=== PATIENT | female | born 1950 | race Hispanic/Latino ===

== ENCOUNTER 2018-10-15 12:15 | Inpatient (IN) | payer MEDICARE ==
[2018-10-15 16:57] VITALS: BMI 19.6
[2018-10-15] MEDS ORDERED: RILUZOLE 50 MG PO SCH (17:45)
[2018-10-15 19:04] LABS: BASO # 0.1 K/uL (0.0-0.2); BASO % 0.8 % (0.0-2.0); EOS # 0.1 K/uL (0.0-0.7); EOS % 1.8 % (0.0-4.0); HEMOGLOBIN 12.6 g/dL (12.0-16.0); LYMPH # 1.5 K/uL (1.0-4.3); LYMPH % 23.4 % (20.0-40.0); MEAN CELL VOLUME 90.8 fl (81.0-99.0); MEAN CORPUSCULAR HEMOGLOBIN 30.5 pg (27.0-31.0); MEAN CORPUSCULAR HGB CONC 33.5 g/dL (33.0-37.0); MEAN PLATELET VOLUME 7.9 fl (7.2-11.7); MONO # 0.5 K/uL (0.0-0.8); MONO % 8.3 % (0.0-10.0); NEUT # 4.3 K/uL (1.8-7.0); NEUT % 65.7 % (50.0-75.0); RBC 4.13 Mil/uL (3.80-5.20); RED CELL DISTRIBUTION WIDTH 13.7 % (11.5-14.5); WHITE BLOOD COUNT 6.5 K/uL (4.8-10.8)
[2018-10-15 19:15] LABS: BLOOD UREA NITROGEN 23 mg/dl (7-17); CALCIUM 9.5 mg/dL (8.4-10.2); GFR NON-AFRICAN AMERICAN > 60
[2018-10-16] MEDS: Cholecalciferol 1,000 INTLU TAB PO SCH (08:14)
[2018-10-16] MEDS: POLYETHYLENE GLYCOL 3350 17 GM/Dose PACKET PO SCH (08:14)
[2018-10-16] MEDS: Pantoprazole 40 mg EC Tab PO SCH (08:14)
[2018-10-16] MEDS: Enoxaparin 40 mg Syringe SC SCH (08:15)
--- NOTE | 2018-10-16 10:46 | CP.PCM.CON ---
History of Present Illness - History of Present Illness History of Present Illness: Pt is a 68 year old female admitted to [facility] and referred to the copy writer for evaluation. See medical record for complete medical history and medications. Social History: pt lives alone, she has had a significant other for a number of years. Pt reported having one son. Pt reported positive relationships with family members. Ed.voc: pt raised in [place], graduated HS. 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 Psych history denied, pt denied a history of alc/sub abuse. Pt spoke of her desire for confirmation of her "ALS" with a "biopsy." Pt spoke of her desire for quality of life, not wanting to be on this earth "if I can not get b yumi." Pt denied current suicidal ideation/suicidal plan. Pt invested in rehab to improve her current status. Pt encouraged to speak about her life preferences with her medical team and family. MSE: pt alert, oriented, relevant/coherent, no psychosis, affect constricted, mood depressed over status, no current suicidal ideation. Dx: Depression Plan: Continued Sup therapy Past Patient History - Infectious Disease Hx of Infectious Diseases: None - Tetanus Immunizations Tetanus Immunization: Unknown - Past Medical History & Family History Past Medical History?: Yes - Past Social History Smoking Status: Never Smoked - CARDIAC Hx Cardiac Disorders: No - PULMONARY Hx Respiratory Disorders: No - NEUROLOGICAL Hx Neurological Disorder: Yes (frequent falls recent) Hx Dizziness: Yes Other/Comment: 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 speech very slow and has problem enunciating words, pt thinks her voice sounds different since june 2018. ALS - HEENT Hx HEENT Problems: Yes - RENAL Hx Chronic Kidney Disease: No - ENDOCRINE/METABOLIC Hx Endocrine Disorders: No - HEMATOLOGICAL/ONCOLOGICAL Hx Blood Disorders: Yes Hx AIDS: No Hx Human Immunodeficiency Virus (HIV): No Other/Comment: BENY CAIN - INTEGUMENTARY Hx Dermatological Problems: No - MUSCULOSKELETAL/RHEUMATOLOGICAL Hx Musculoskeletal Disorders: Yes Hx Arthritis: Yes Hx Falls: Yes (Couple of weeks ago, multiple hx of falls) - GASTROINTESTINAL Hx Gastrointestinal Disorders: Yes Hx Gastritis: Yes Hx Ulcer: Yes (PUD) Other/Comment: weight loss, poor appetite. Hiatal Hernia - GENITOURINARY/GYNECOLOGICAL Hx Genitourinary Disorders: No - PSYCHIATRIC Hx Psychophysiologic Disorder: No Hx Substance Use: No - SURGICAL HISTORY Hx Surgeries: Yes Other/Comment: R hip surgery fx from fall. R elbow surgery. R shoulder surgery rotator cuff. Bilateral breast implant - ANESTHESIA Hx Anesthesia: Yes Hx Anesthesia Reactions: No Hx Malignant Hyperthermia: No Meds Allergies/Adverse Reactions: Allergies Allergy/AdvReac Type Severity Reaction Status Date / Time ammonia Allergy Intermediate HEADACHE Verified 10/15/18 16:56 windex Allergy Intermediate HEADACHE Uncoded 10/15/18 16:57 - Medications Medications: Current Medications Cholecalciferol (Vitamin D) 4,000 intlu PO DAILY [facility] Last Admin: 10/16/18 08:14 Dose: 4,000 intlu Clotrimazole (Mycelex Leandro) 10 mg MT 5XD [facility] Last Admin: 10/16/18 08:14 Dose: 10 mg Enoxaparin Sodium (Lovenox) 40 mg SC DAILY [facility]; Protocol Last Admin: 10/16/18 08:15 Dose: 40 mg Fluconazole (Diflucan) 100 mg PO DAILY [facility]; Protocol Last Admin: 10/16/18 08:14 Dose: 100 mg Home Med (Riluzole [Riluzole]) 50 mg PO BID [facility] Pantoprazole Sodium (Protonix Ec Tab) 40 mg PO DAILY [facility] Last Admin: 10/16/18 08:14 Dose: 40 mg Polyethylene Glycol (Miralax) 17 gm PO DAILY [facility] Last Admin: 10/16/18 08:14 Dose: 17 gm Results - Vital Signs Recent Vital Signs: Last Vital Signs Temp 96.4 F L 10/16/18 08:08 Pulse 74 10/16/18 10:00 Resp 18 10/16/18 10:00 BP 134/53 L 10/16/18 10:00 Pulse Ox 96 10/16/18 10:00 - Labs Result Diagrams: 10/15/18 18:15 10/15/18 18:15 Labs: Laboratory Results - last 24 hr 10/15/18 10/15/18 18:15 18:15 WBC 6.5 RBC 4.13 Hgb 12.6 Hct 37.5 MCV 90.8 MCH 30.5 MCHC 33.5 RDW 13.7 Plt Count 294 MPV 7.9 Neut % (Auto) 65.7 Lymph % (Auto) 23.4 Gove % (Auto) 8.3 Eos % (Auto) 1.8 Baso % (Auto) 0.8 Neut # (Auto) 4.3 Lymph # (Auto) 1.5 Gove # (Auto) 0.5 Eos # (Auto) 0.1 Baso # (Auto) 0.1 Sodium 138 Potassium 4.1 Chloride 103 Carbon Dioxide 28 Anion Gap 11 BUN 23 H Creatinine 0.5 L Est GFR ( Amer) > 60 Est GFR (Non-Af Amer) > 60 Random Glucose 126 H Calcium 9.5 Vitamin B12 > 1000 H TSH 3rd Generation 2.78
--- NOTE | 2018-10-16 16:56 | PCM.CPAPS ---
History of Present Illness - History of Present Illness History of Present Illness: Dr Campos PMR consultation on Minda Clifford, born 1950, who has been admitted to [facility] for acute inpatient rehabilitation following an admission with progressive weakness and dysphagia/dysarthria. Weakness is more on the left side than the right. Work up to this point has been extensive and did not reveal any other possible abnormality outside of ALS. An EMG/NCS had not yet been performed. She wants one. It was to be done as an outpatient but she is anxious to get this done now. I told her that I can do it at bedside and she was very happy Review of Systems - Constitutional Constitutional: Weakness. absent: Excessive Sweating - EENT Ears: absent: Ear Discharge Nose/Mouth/Throat: Dysphagia. absent: Lip Swelling, Throat Swelling, Neck Mass - Cardiovascular Cardiovascular: absent: Chest Pain, Palpitations - Respiratory Respiratory: absent: Dyspnea - Gastrointestinal Gastrointestinal: Dysphagia. absent: Dyspepsia - Musculoskeletal Musculoskeletal: Muscle Weakness - Integumentary Integumentary: absent: Sores - Neurological Neurological: Abnormal Movements (fasciculations), Abnormal Speech (dysarthria, severe), Focal Weakness, Lack of Coordination, Weakness. absent: Confusion, Disequilibrium, Memory Loss, Sensory Deficit - Psychiatric Psychiatric: absent: Anxiety Past Patient History - Infectious Disease Hx of Infectious Diseases: None - Tetanus Immunizations Tetanus Immunization: Unknown - Past Medical History & Family History Past Medical History?: Yes - Past Social History Smoking Status: Never Smoked Alcohol: Occasional - CARDIAC Hx Cardiac Disorders: No - PULMONARY Hx Respiratory Disorders: No - NEUROLOGICAL Hx Neurological Disorder: Yes (frequent falls recent) Hx Dizziness: Yes Other/Comment: 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 speech very slow and has problem enunciating words, pt thinks her voice sounds different since june 2018. ALS - HEENT Hx HEENT Problems: Yes - RENAL Hx Chronic Kidney Disease: No - ENDOCRINE/METABOLIC Hx Endocrine Disorders: No - HEMATOLOGICAL/ONCOLOGICAL Hx Blood Disorders: Yes Hx AIDS: No Hx Human Immunodeficiency Virus (HIV): No Other/Comment: BENY CAIN - INTEGUMENTARY Hx Dermatological Problems: No - MUSCULOSKELETAL/RHEUMATOLOGICAL Hx Musculoskeletal Disorders: Yes Hx Arthritis: Yes Hx Falls: Yes (Couple of weeks ago, multiple hx of falls) - GASTROINTESTINAL Hx Gastrointestinal Disorders: Yes Hx Gastritis: Yes Hx Ulcer: Yes (PUD) Other/Comment: weight loss, poor appetite. Hiatal Hernia - GENITOURINARY/GYNECOLOGICAL Hx Genitourinary Disorders: No - PSYCHIATRIC Hx Psychophysiologic Disorder: No Hx Substance Use: No - SURGICAL HISTORY Hx Surgeries: Yes Other/Comment: R hip surgery fx from fall. R elbow surgery. R shoulder surgery rotator cuff. Bilateral breast implant - ANESTHESIA Hx Anesthesia: Yes Hx Anesthesia Reactions: No Hx Malignant Hyperthermia: No Meds Allergies/Adverse Reactions: Allergies Allergy/AdvReac Type Severity Reaction Status Date / Time ammonia Allergy Intermediate HEADACHE Verified 10/15/18 16:56 windex Allergy Intermediate HEADACHE Uncoded 10/15/18 16:57 - Medications Medications: Current Medications Acetaminophen (Tylenol 325mg Tab) 650 mg PO Q6 PRN PRN Reason: for pain scale 4-10 Cholecalciferol (Vitamin D) 4,000 intlu PO DAILY [facility] Last Admin: 10/16/18 08:14 Dose: 4,000 intlu Clotrimazole (Mycelex Leandro) 10 mg MT 5XD [facility] Last Admin: 10/16/18 14:09 Dose: 10 mg Enoxaparin Sodium (Lovenox) 40 mg SC DAILY [facility]; Protocol Last Admin: 10/16/18 08:15 Dose: 40 mg Fluconazole (Diflucan) 100 mg PO DAILY [facility]; Protocol Last Admin: 10/16/18 08:14 Dose: 100 mg Home Med (Riluzole [Riluzole]) 50 mg PO BID [facility] Pantoprazole Sodium (Protonix Ec Tab) 40 mg PO DAILY [facility] Last Admin: 10/16/18 08:14 Dose: 40 mg Polyethylene Glycol (Miralax) 17 gm PO DAILY [facility] Last Admin: 10/16/18 08:14 Dose: 17 gm Physical Exam - Constitutional Appears: Non-toxic, No Acute Distress - Head Exam Head Exam: ATRAUMATIC, NORMAL INSPECTION, NORMOCEPHALIC - Eye Exam Eye Exam: EOMI - Respiratory Exam Respiratory Exam: NORMAL BREATHING PATTERN - Cardiovascular Exam Cardiovascular Exam: REGULAR RHYTHM - GI/Abdominal Exam GI & Abdominal Exam: absent: Distended - Extremities Exam Extremities exam: Negative for: calf tenderness, pedal edema - Expanded Neurological Exam Expanded Patient oriented to: person, place, time Speech: Slurred Speech - Psychiatric Exam Psychiatric exam: Normal Affect, Normal Mood - Skin Skin Exam: Warm Results - Vital Signs Recent Vital Signs: Last Vital Signs Temp 96.4 F L 10/16/18 08:08 Pulse 74 10/16/18 10:00 Resp 18 10/16/18 10:00 BP 134/53 L 10/16/18 10:00 Pulse Ox 96 10/16/18 10:00 - Labs Result Diagrams: 10/15/18 18:15 10/15/18 18:15 Labs: Laboratory Results - last 24 hr 10/15/18 10/15/18 18:15 18:15 WBC 6.5 RBC 4.13 Hgb 12.6 Hct 37.5 MCV 90.8 MCH 30.5 MCHC 33.5 RDW 13.7 Plt Count 294 MPV 7.9 Neut % (Auto) 65.7 Lymph % (Auto) 23.4 Taney % (Auto) 8.3 Eos % (Auto) 1.8 Baso % (Auto) 0.8 Neut # (Auto) 4.3 Lymph # (Auto) 1.5 Taney # (Auto) 0.5 Eos # (Auto) 0.1 Baso # (Auto) 0.1 Sodium 138 Potassium 4.1 Chloride 103 Carbon Dioxide 28 Anion Gap 11 BUN 23 H Creatinine 0.5 L Est GFR ( Amer) > 60 Est GFR (Non-Af Amer) > 60 Random Glucose 126 H Calcium 9.5 Vitamin B12 > 1000 H TSH 3rd Generation 2.78 Assessment & Plan - Assessment and Plan (Free Text) Assessment: 68 year old female with likely ALS examination has left UE/LE at 3/5 for the most part except for left shoulder and ankle dorsiflexion. The right UE/LE is 4/5 + Solitario's +/- Babinski + tongue fasciculation could not activate LE fasciculation but it has been documented by other providers PT/OT to continue to help increase functional independence Team conference for d/c planning Pain: controlled Vascular: no evidence of DVT GI: No evidence of constipation or diarrhea Neuro: I will perform a bedside EMG/NCS Patient is an excellent acute rehabilitation candidate and will have focused pain management, wound care, PT, OT and recreational therapy to help facilitate a safe and appropriate d/c plan - Functional Status Prior to Admission: reduced ADL and ambulation Current Status: reduced ambulation and ADL Impairment Code: 03.9
--- NOTE | 2018-10-16 17:26 | PCM.OPOC ---
Physiatry Overall Plan of Care - Overall Plan of Care Estimated Length of Stay in Weeks: 3 Rehab Impairment: Mobility, Gait, Speech, Balance, Coordination Etiologic Diagnosis: Other (ALS) Rehab/Medical Prognosis: Guarded - Anticipated Interventions Physical Therapy:: Yes Number of Hours: 1.5 Number of times per week: 6 Number of Week(s) Duration: 3 Occupational Therapy:: Yes Number of Hours: 1.5 Number of times per week: 6 Number of Week(s) Duration: 3 Speech Therapy:: Yes Number of Hours: 0.5 Number of times per week: 5 Number of Week(s) Duration: 3 Recreational Therapy:: Yes Number of Hours: 0.5 Number of times per week: 5 Number of Week(s) Duration: 3 - Therapy Goals Bed Mobility: Contact Guard Ambulation: Minimal Assistance Functional Positional Changes:: Contact Guard - Functional Status Prior to Admission: assistance with ambulation and ADLs Current Status: Assistance with ambulation and ADLs - Functional Outcomes Functional Outcomes: to be determined - Discharge Plan Identification of Barriers to Discharge: Home Situation Discharge Destination: Home
[2018-10-17] MEDS: Enoxaparin 40 mg Syringe SC SCH (09:11)
[2018-10-17] MEDS: POLYETHYLENE GLYCOL 3350 17 GM/Dose PACKET PO SCH (09:12)
[2018-10-17] MEDS: Pantoprazole 40 mg EC Tab PO SCH (09:13)
[2018-10-17] MEDS: Cholecalciferol 1,000 INTLU TAB PO SCH (09:13)
[2018-10-18 06:53] LABS: HEMOGLOBIN 12.9 g/dL (12.0-16.0); MEAN CELL VOLUME 90.3 fl (81.0-99.0); MEAN CORPUSCULAR HEMOGLOBIN 31.1 pg (27.0-31.0); MEAN CORPUSCULAR HGB CONC 34.5 g/dL (33.0-37.0); RBC 4.15 Mil/uL (3.80-5.20); RED CELL DISTRIBUTION WIDTH 13.4 % (11.5-14.5); WHITE BLOOD COUNT 5.4 K/uL (4.8-10.8)
[2018-10-18 07:06] LABS: BLOOD UREA NITROGEN 22 mg/dl (7-17); CALCIUM 9.5 mg/dL (8.4-10.2); GFR NON-AFRICAN AMERICAN > 60
[2018-10-18] MEDS: POLYETHYLENE GLYCOL 3350 17 GM/Dose PACKET PO SCH (09:08)
[2018-10-18] MEDS: Cholecalciferol 1,000 INTLU TAB PO SCH (09:08)
[2018-10-18] MEDS: Enoxaparin 40 mg Syringe SC SCH (09:09)
[2018-10-18] MEDS: Pantoprazole 40 mg EC Tab PO SCH (09:09)
--- NOTE | 2018-10-19 02:20 | CP.PCM.HP ---
Past Patient History - Infectious Disease Hx of Infectious Diseases: None - Tetanus Immunizations Tetanus Immunization: Unknown - Past Medical History & Family History Past Medical History?: Yes - Past Social History Smoking Status: Never Smoked Alcohol: Occasional - CARDIAC Hx Cardiac Disorders: No - PULMONARY Hx Respiratory Disorders: No - NEUROLOGICAL Hx Neurological Disorder: Yes (frequent falls recent) Hx Dizziness: Yes Other/Comment: 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 speech very slow and has problem enunciating words, pt thinks her voice sounds different since june 2018. ALS - HEENT Hx HEENT Problems: Yes - RENAL Hx Chronic Kidney Disease: No - ENDOCRINE/METABOLIC Hx Endocrine Disorders: No - HEMATOLOGICAL/ONCOLOGICAL Hx Blood Disorders: Yes Hx AIDS: No Hx Human Immunodeficiency Virus (HIV): No Other/Comment: BENY CAIN - INTEGUMENTARY Hx Dermatological Problems: No - MUSCULOSKELETAL/RHEUMATOLOGICAL Hx Musculoskeletal Disorders: Yes Hx Arthritis: Yes Hx Falls: Yes (Couple of weeks ago, multiple hx of falls) - GASTROINTESTINAL Hx Gastrointestinal Disorders: Yes Hx Gastritis: Yes Hx Ulcer: Yes (PUD) Other/Comment: weight loss, poor appetite. Hiatal Hernia - GENITOURINARY/GYNECOLOGICAL Hx Genitourinary Disorders: No - PSYCHIATRIC Hx Psychophysiologic Disorder: No Hx Substance Use: No - SURGICAL HISTORY Hx Surgeries: Yes Other/Comment: R hip surgery fx from fall. R elbow surgery. R shoulder surgery rotator cuff. Bilateral breast implant - ANESTHESIA Hx Anesthesia: Yes Hx Anesthesia Reactions: No Hx Malignant Hyperthermia: No Meds Allergies/Adverse Reactions: Allergies Allergy/AdvReac Type Severity Reaction Status Date / Time ammonia Allergy Intermediate HEADACHE Verified 10/15/18 16:56 windex Allergy Intermediate HEADACHE Uncoded 10/15/18 16:57 Results - Vital Signs Recent Vital Signs: Last Vital Signs Temp 98.2 F 10/18/18 20:00 Pulse 84 10/18/18 20:00 Resp 20 10/18/18 20:00 BP 119/69 10/18/18 20:00 Pulse Ox 96 10/18/18 20:00 - Labs Result Diagrams: 10/18/18 05:27 10/18/18 05:27 Labs: Laboratory Results - last 24 hr 10/18/18 10/18/18 05:27 05:27 WBC 5.4 RBC 4.15 Hgb 12.9 Hct 37.5 MCV 90.3 MCH 31.1 H MCHC 34.5 RDW 13.4 Plt Count 318 Sodium 138 Potassium 4.3 Chloride 102 Carbon Dioxide 28 Anion Gap 12 BUN 22 H Creatinine 0.5 L Est GFR ( Amer) > 60 Est GFR (Non-Af Amer) > 60 Random Glucose 92 Calcium 9.5
--- NOTE | 2018-10-19 02:45 | CP.PCM.PN ---
Subjective - Date & Time of Evaluation Date of Evaluation: 10/17/18 Time of Evaluation: 21:30 Objective - Vital Signs/Intake and Output Vital Signs (last 24 hours): Temp Pulse Resp BP Pulse Ox 98.2 F 84 20 119/69 96 10/18/18 20:00 10/18/18 20:00 10/18/18 20:00 10/18/18 20:00 10/18/18 20:00 - Medications Medications: Current Medications Acetaminophen (Tylenol 325mg Tab) 650 mg PO Q6 PRN PRN Reason: for pain scale 4-10 Last Admin: 10/18/18 04:23 Dose: 650 mg Cholecalciferol (Vitamin D) 4,000 intlu PO DAILY [facility] Last Admin: 10/18/18 09:08 Dose: 4,000 intlu Clotrimazole (Mycelex Leandro) 10 mg MT 5XD [facility] Last Admin: 10/18/18 21:14 Dose: 10 mg Enoxaparin Sodium (Lovenox) 40 mg SC DAILY [facility]; Protocol Last Admin: 10/18/18 09:09 Dose: 40 mg Fluconazole (Diflucan) 100 mg PO DAILY [facility]; Protocol Last Admin: 10/18/18 09:09 Dose: 100 mg Home Med (Riluzole [Riluzole]) 50 mg PO BID [facility] Pantoprazole Sodium (Protonix Ec Tab) 40 mg PO DAILY [facility] Last Admin: 10/18/18 09:09 Dose: 40 mg Polyethylene Glycol (Miralax) 17 gm PO DAILY [facility] Last Admin: 10/18/18 09:08 Dose: 17 gm - Labs Labs: 10/18/18 05:27 10/18/18 05:27
[2018-10-19] MEDS: Enoxaparin 40 mg Syringe SC SCH (08:13)
[2018-10-19] MEDS: POLYETHYLENE GLYCOL 3350 17 GM/Dose PACKET PO SCH (08:13)
[2018-10-19] MEDS: Cholecalciferol 1,000 INTLU TAB PO SCH (08:15)
[2018-10-19] MEDS: Pantoprazole 40 mg EC Tab PO SCH (08:15)
--- NOTE | 2018-10-19 17:04 | CP.PCM.PN ---
Subjective - Date & Time of Evaluation Date of Evaluation: 10/17/18 Time of Evaluation: 16:00 - Subjective Subjective: no acute complaints at present, weakness Objective - Vital Signs/Intake and Output Vital Signs (last 24 hours): Temp Pulse Resp BP Pulse Ox 97.7 F 76 18 118/77 97 10/19/18 10:00 10/19/18 10:00 10/19/18 10:00 10/19/18 10:00 10/19/18 10:00 - Medications Medications: Current Medications Acetaminophen (Tylenol 325mg Tab) 650 mg PO Q6 PRN PRN Reason: for pain scale 4-10 Last Admin: 10/18/18 04:23 Dose: 650 mg Cholecalciferol (Vitamin D) 4,000 intlu PO DAILY [facility] Last Admin: 10/19/18 08:15 Dose: 4,000 intlu Clotrimazole (Mycelex Leandro) 10 mg MT 5XD [facility] Last Admin: 10/19/18 16:49 Dose: 10 mg Enoxaparin Sodium (Lovenox) 40 mg SC DAILY [facility]; Protocol Fluconazole (Diflucan) 100 mg PO DAILY [facility]; Protocol Last Admin: 10/19/18 08:14 Dose: 100 mg Home Med (Riluzole [Riluzole]) 50 mg PO BID [facility] Pantoprazole Sodium (Protonix Ec Tab) 40 mg PO DAILY [facility] Last Admin: 10/19/18 08:15 Dose: 40 mg Polyethylene Glycol (Miralax) 17 gm PO DAILY [facility] Last Admin: 10/19/18 08:13 Dose: 17 gm - Labs Labs: 10/18/18 05:27 10/18/18 05:27 - Constitutional Appears: Well - Head Exam Head Exam: ATRAUMATIC, NORMAL INSPECTION - Eye Exam Eye Exam: EOMI Pupil Exam: NORMAL ACCOMODATION - ENT Exam ENT Exam: Normal Exam - Neck Exam Neck Exam: Normal Inspection - Respiratory Exam Respiratory Exam: Clear to Ausculation Bilateral, NORMAL BREATHING PATTERN - Cardiovascular Exam Cardiovascular Exam: REGULAR RHYTHM - GI/Abdominal Exam GI & Abdominal Exam: Normal Bowel Sounds - Rectal Exam Rectal Exam: NORMAL INSPECTION - Exam External exam: NORMAL EXTERNAL EXAM - Extremities Exam Extremities Exam: Normal Capillary Refill - Neurological Exam Neurological Exam: Alert - Psychiatric Exam Psychiatric exam: Normal Mood - Skin Skin Exam: Normal Color Assessment and Plan (1) Chronic inflammatory demyelinating polyneuropathy Assessment & Plan: plan to continue with physical, occupational, rec therapy covering for Dr. Campos Status: Acute (2) Dysarthria Status: Acute (3) Multiple falls Status: Acute
[2018-10-20] MEDS: Cholecalciferol 1,000 INTLU TAB PO SCH (10:08)
[2018-10-20] MEDS: Enoxaparin 40 mg Syringe SC SCH ×2 (10:09→12:33)
[2018-10-20] MEDS: Pantoprazole 40 mg EC Tab PO SCH (10:10)
[2018-10-20] MEDS: POLYETHYLENE GLYCOL 3350 17 GM/Dose PACKET PO SCH (10:10)
--- NOTE | 2018-10-20 13:12 | PCM.PSYTMC ---
Acute Rehab Team Conference - - Vital Signs: Pain: 0 Physical Therapy - Bed Mobility Bed Mobility: Verbal Cues, Contact Guard - Transfers Wheelchair to Mat: Verbal Cues, Minimal Assistance Sit to Stand: Verbal Cues, Minimal Assistance - Ambulation Distance (ft.): 125 Assistive Devices: Rolling Walker Orthoses: B dorsiflexion wraps Comment: -B dorsiflexion wraps in place. -level surfaces with RW. -x 3 trials with seated rest breaks between trials. 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 -impaired base of support with instances of narrow base as well as impaired coordination with contact position of each LE. -pt reports she used to feel RLE was weaker due to arthritis in the knee and that she has a history of buckling at the R knee - Stair Negotiation Stairs: Level of Assistance: Moderate Assistance, Maximum Assistance Number of Stairs: 2 Stairs: Assistive Devices: Left Handrail, Right Handrail Comment: 2 6 inch steps with B rails with B dorsiflexion wraps in place. -step to pattern leading with RLE on ascent and LLE on descent; ascent forwards and descent backwards. -mod to max A for ascent with assistance for upwards progression of weight. -mod A on descent with reduced eccentric control on RLE - Standing Balance Static Stand: Minimal Assistance - Pain Pain (assessed during therapy session): 0 Comment: pt denies pain - Insight/Carryover Insight/Carryover: Fair - Patient/Family Education Comment: safety, therapy schedule, therapy goals, mobility, use of call mcdonough, energy conservation techniques, plan of care, postural control, use of DME - Assessment/Plan Assessment: Patient continues to require assistance for all mobility. Patient with arthritic changes in R hip and R knee noted with crepitus during transfers and other mobility tasks. Patient requires rest breaks due to fatigue during therapy sessions. Patient benefits from use of B dorsiflexion wraps as they reduce the energy demands on walking for the patient as well as improve foot clearance particularly on the L side. PT continues to focus with patient on weight bearing activities, tasks to maintain full range of motion at all joints and focus on functional activities that will reduce burden of care. PT recommends continued skilled PT with emphasis on family education and patient education to maximize safety and independence with all mobility as well as focus on reduction of burden of care s/p new ALS diagnosis. PT recommends home discharge with 24 hour care vs KATHIE pending patients progress and family support. - Goals Timeframe: 7 days Goals: -rolling with supervision. -supine to/from sit with supervision. -sit to/from stand with RW with CGA. -stand pivot transfer with RW with CGA. - ambulate 150 feet with RW with CS. -family will attend family training session and begin hands on training for safety with discharge - Provider Physical Therapist:: Ailyn Livingston License Number:: [id number] Occupational Therapy - Arousal/Attention/Orientation Level of Consciousness: Awake, Alert Patient Orientation: Person, Place, Time - ADL/IADL Self Feeding: Supervision, Verbal Cues, Set-up Help Grooming: Supervision, Verbal Cues, Set-up Help Dressing-Upper Ext: Minimal Assistance Dressing-Lower Ext: Maximum Assistance Homemaking: Dependent - Sitting Balance Static Sitting: Independent without upper extremity support Dynamic Sitting: Requires supervision, Contact Guard Assist - Transfers Wheelchair to Bed Transfers: Minimal Assistance Toilet Transfers: Minimal Assistance, Moderate Assistance Comment: tub transfers to be assesed - Wheelchair Management Level of Assistance: Minimal Assistance, Moderate Assistance Distance (ft.): 150 - Upper Extremity Status Right Upper Extremity Comment: strength 3/5 t/o shldr, elbow, forearm and wrist. buckle attaching machine operator stregth 3-/5 Left Upper Extremity Comment: LUE strength 3-/5, shoudler ,elbow, forearm,. wrist 3/5, and fingers 3-/5 - Pain Pain (assessed during therapy session): 0 - Insight/Carryover Insight/Carryover: Good - Assessment/Plan Assessment: Pt is a 68 year old R handed female with dx: ALS. Precautions: falls, aspiration precautions, cardiac. Pt limited by impaired BUE strength/hand and digits, impaired AROM/PROM in L shoulder, L wrist and B/L digits, impaired sitting/standing balance/tolerance, impaired safety awareness/insight/judgement,impaired overall endurance, impaired knowledge of adaptive/compensatory strategies which impact on self care, transfers and mobilty. Recommend 24 hour care, transfer bench with back, 3 in one commode, w/c and RW pending progress. pt will continue skilled OT to address functional impairment to maximize function in self care, transfers/mobillity using adpstive/compensatory techniques, +caregiver ed, DME needs assessment for safe transition home with 24 hour care OR KATHIE pending support systems/progress. At this time pt making gains . patient copletetes ub adls with overall min A and lb adls with overlal max A, patient completes toileting with mod A and transfers with min-mod A. *Goal: Supervision/CS for adls, transfers/mobility uisng assistive device/adaptive/compensatory strategies. - Goals Timeframe: 2 weeks Comment: *Goal: Supervision/CS for adls, transfers/mobility uisng assistive device/adaptive/compensatory strategies. - Provider Occupational Therapist:: Britt Castillo License Number: [id number] Speech Therapy - Consult Information Patient on Program: Yes Medical Diagnosis: ALS Treatment Diagnosis: -severe dysarthria/dysphonia. -moderate oropharyngeal dysphagia - Assessment Speech/Articulation Impairment: Severe Dysphagia/Swallowing Impairment: Moderate - Plan Assessment: Minda Clifford presents with severe dysarthria and dysphonia characterized by impaired oral motor strength/ROM/coordination and impaired respiration for phonation negatively impacting articulatory precision and speech intelligibility at the word/phrase level; the pt is utilizing writing to effectively communicate her wants/needs/ideas, though her verbal speech production is intelligible <25% AGUSTIN. Pt also presents with moderate oropharyngeal dysphagia characterized by impaired strength/ROM of oral musculature resulting in impaired oral containment for thin liquids, moderately impaired bolus formation and control, especially for thin liquids, with suspected posterior spillage, impaired mastication, prolonged A-P transit time with all consistencies, delayed swallow initiation with impaired laryngeal elevation; no overt s/s aspiration on PO trials tested, though pt at risk for aspiration secondary to impaired lingual strength negatively impacting bolus control and propulsion. Pt reporting difficulty swallowing thin liquids, though states that she is tolerating finely chopped solids well; significantly improved bolus control observed with nectar thick liquids and pt requesting thickened liquids. Recommend diet of finely chopped, moist solids and nectar thick liquids; maintain strict aspiration precautions; also recommend pt follow the Pimentel Free Water Protocol. Pt would benefit from skilled speech and dysphagia tx for compensatory strategy education, training on use of AAC devices to effectively communicate in functional living environment, diet tolerance, and compensatory strategy training for safe swallowing of PO diet. Pt with excellent motivation and participation, though physical deficits and fatigue are barriers to learning. Plan: Continue Dysphagia Therapy, Continue Speech/Language Therapy Frequency: 3-5 times per week Duration: 1 week Goals/Timeframe: Please see progress note dated 10/19/18 for goals/POC Recommendations: -Continue speech and dysphagia tx 3-5x/week. -Finely chopped diet/nectar thick liquids; Pimentel Free Water Protocol - Provider Therapist: Inge Dukes License Number: [id number] Recreational Therapy - Participation Participation: Monitors His/Her Own Leisure Time - Attendance Attendance: Daily - Activities Leisure Activities: Television - Socialization Level of Socialization: Requires 1:1 guidance to respond, Socialization severely limited - Diversional Time Diversional Time: watching television - Assessment Assessment/Plan: Pt was oriented to benefits and purpose of participating in recreation therapy sessions throughout stay on unit. Pt receives daily room visits for encouragement to participate in sessions. Pt's barriers to parti cipation include fatigue, decrease activity tolerance level, and weakness in which all are related to diagnosis. Pt communicates by either demonstrating hand gestures or utilizing white board by writing responses. Will continue to encourage pt to participate in sessions to improve activity tolerance level and overall arousal level. Problems Currently Limiting Participation: impaired speech intelligibility, progressive weakness, limited insight of diagnosis, decrease activity tolerance level related to diagnosis Goals and Time Frame: Pt will participate in 30 minute recreation therapy session requiring 50% of verbal cues to improve leisure awareness level and activty tolerance level by date of discharge. - Provider Therapist: Heike Casiano Nutrition - Current Diet Current Diet/Supplement/Feedings: mech altered(finely chopped)nectar thickm gluten free. gluten free/sugar free - Appetite Percent Meal Consumed: 50-74% - Assessment/Goals/Time Frame Assessments/Goals/Time Frame: Pt at moderate nutritional risk. goals: continue to consume 75-100% of estimated needs. maintain current weight. Follow-up due on 10/23/2018 - Provider Provider: Jennifer Sanabria Case Management - Psychosocial Assessment Support Systems: Tacho Clifford (emani)- [phone] Psychological Interventions/Needs: Patient is alert and oriented x3 with expressive aphasia. Discharge Concerns: Patient will require 24 hour care at home due to extent of deficits and nature of illness Patient/Family Meeting: CM met with patient and rehab team Intervention/Goal/Outcome: 1. PLAN: Home with 24 hour care- CM spoke with emani Titus who states patient will be discharged to his home after completion of rehab as he was assisting patient intermittently prior to hospitalization- CM discussed recommendation of 24 hour care at home- son verbalized understanding and states that he is primary support for patient and will be initiating interviews for private pay homemaker services for facilitate transition back home. Son also verbalized desire to have second opinion regarding diagnosis and prognosis. DME needs to solidified. Tentative discharge date: 10/29/2018? - Discharge Plan Discharge Plan: Home with significant other/family - Provider Provider: Grant Hernandez License Number: [id number] Rehabilitation Plan - Treatment Plan Treatment Plan: Physical Therapy, Occupational Therapy, Speech, Dietary, Patient/Family Education - Discharge Plan Estimated Date of Discharge: 10/30/18 Discharge to: Home
--- NOTE | 2018-10-20 13:32 | CP.PCM.PN ---
Subjective - Date & Time of Evaluation Date of Evaluation: 10/20/18 Time of Evaluation: 13:30 - Subjective Subjective: Patient seen in the room family is present NAD discussed getting the emg/ncs done this week she is really hoping that there is a mistake in the diagnosis the presentation is consistent with a neurological abnormality with both upper and lower motor neuron abnormalities continue current care. Objective - Vital Signs/Intake and Output Vital Signs (last 24 hours): Temp Pulse Resp BP Pulse Ox 97.7 F 72 18 99/55 L 97 10/19/18 20:18 10/19/18 20:18 10/19/18 20:18 10/19/18 20:18 10/19/18 20:18 - Medications Medications: Current Medications Acetaminophen (Tylenol 325mg Tab) 650 mg PO Q6 PRN PRN Reason: for pain scale 4-10 Last Admin: 10/20/18 01:45 Dose: 650 mg Cholecalciferol (Vitamin D) 4,000 intlu PO DAILY [facility] Last Admin: 10/20/18 10:08 Dose: 4,000 intlu Clotrimazole (Mycelex Leandro) 10 mg MT 5XD [facility] Last Admin: 10/20/18 12:35 Dose: 10 mg Enoxaparin Sodium (Lovenox) 40 mg SC DAILY [facility]; Protocol Last Admin: 10/20/18 12:33 Dose: Not Given Fluconazole (Diflucan) 100 mg PO DAILY [facility]; Protocol Last Admin: 10/20/18 10:09 Dose: 100 mg Home Med (Riluzole [Riluzole]) 50 mg PO BID [facility] Pantoprazole Sodium (Protonix Ec Tab) 40 mg PO DAILY [facility] Last Admin: 10/20/18 10:10 Dose: 40 mg Polyethylene Glycol (Miralax) 17 gm PO DAILY [facility] Last Admin: 10/20/18 10:10 Dose: 17 gm - Labs Labs: 10/18/18 05:27 10/18/18 05:27
[2018-10-21] MEDS: Pantoprazole 40 mg EC Tab PO SCH (09:28)
[2018-10-21] MEDS: Cholecalciferol 1,000 INTLU TAB PO SCH (09:28)
[2018-10-21] MEDS: POLYETHYLENE GLYCOL 3350 17 GM/Dose PACKET PO SCH (12:17)
[2018-10-22] MEDS: Cholecalciferol 1,000 INTLU TAB PO SCH (08:04)
[2018-10-22] MEDS: Pantoprazole 40 mg EC Tab PO SCH (08:04)
[2018-10-22] MEDS: POLYETHYLENE GLYCOL 3350 17 GM/Dose PACKET PO SCH (08:04)
[2018-10-23] MEDS: Pantoprazole 40 mg EC Tab PO SCH (08:34)
[2018-10-23] MEDS: POLYETHYLENE GLYCOL 3350 17 GM/Dose PACKET PO SCH (08:36)
[2018-10-23] MEDS: Cholecalciferol 1,000 INTLU TAB PO SCH (08:36)
--- NOTE | 2018-10-23 09:50 | CP.PCM.CON ---
History of Present Illness - History of Present Illness History of Present Illness: Pt seen for sup therapy 7:52-8:12. Pt discussed the week in rehab, conferences, data communicated and the test planned for today. Pt spoke of her living will and communication of preferences. Pt discussed adjustment to dx, the present and future. support provided. Pt spoke of discharge home to her son and satisfaction with that plan. 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 speech very slow and has problem enunciating words, pt thinks her voice sounds different since june 2018. ALS - HEENT Hx HEENT Problems: Yes - RENAL Hx Chronic Kidney Disease: No - ENDOCRINE/METABOLIC Hx Endocrine Disorders: No - HEMATOLOGICAL/ONCOLOGICAL Hx Blood Disorders: Yes Hx AIDS: No Hx Human Immunodeficiency Virus (HIV): No Other/Comment: BENY CAIN - INTEGUMENTARY Hx Dermatological Problems: No - MUSCULOSKELETAL/RHEUMATOLOGICAL Hx Musculoskeletal Disorders: Yes Hx Arthritis: Yes Hx Falls: Yes (Couple of weeks ago, multiple hx of falls) - GASTROINTESTINAL Hx Gastrointestinal Disorders: Yes Hx Gastritis: Yes Hx Ulcer: Yes (PUD) Other/Comment: weight loss, poor appetite. Hiatal Hernia - GENITOURINARY/GYNECOLOGICAL Hx Genitourinary Disorders: No - PSYCHIATRIC Hx Psychophysiologic Disorder: No Hx Substance Use: No - SURGICAL HISTORY Hx Surgeries: Yes Other/Comment: R hip surgery fx from fall. R elbow surgery. R shoulder surgery rotator cuff. Bilateral breast implant - ANESTHESIA Hx Anesthesia: Yes Hx Anesthesia Reactions: No Hx Malignant Hyperthermia: No Meds Allergies/Adverse Reactions: Allergies Allergy/AdvReac Type Severity Reaction Status Date / Time ammonia Allergy Intermediate HEADACHE Verified 10/15/18 16:56 windex Allergy Intermediate HEADACHE Uncoded 10/15/18 16:57 - Medications Medications: Current Medications Acetaminophen (Tylenol 325mg Tab) 650 mg PO Q6 PRN PRN Reason: for pain scale 4-10 Last Admin: 10/21/18 23:05 Dose: 650 mg Cholecalciferol (Vitamin D) 4,000 intlu PO DAILY [facility] Last Admin: 10/23/18 08:36 Dose: 4,000 intlu Clotrimazole (Mycelex Leandro) 10 mg MT 5XD [facility] Last Admin: 10/23/18 08:35 Dose: 10 mg Fluconazole (Diflucan) 100 mg PO DAILY [facility]; Protocol Last Admin: 10/22/18 08:04 Dose: 100 mg Pantoprazole Sodium (Protonix Ec Tab) 40 mg PO DAILY [facility] Last Admin: 10/23/18 08:34 Dose: 40 mg Polyethylene Glycol (Miralax) 17 gm PO DAILY [facility] Last Admin: 10/23/18 08:36 Dose: 17 gm Results - Vital Signs Recent Vital Signs: Last Vital Signs Temp 97.5 F L 10/23/18 08:34 Pulse 80 10/23/18 08:34 Resp 21 10/23/18 08:34 BP 113/68 10/23/18 08:34 Pulse Ox 97 10/23/18 08:34 - Labs Result Diagrams: 10/18/18 05:27 10/18/18 05:27
--- NOTE | 2018-10-23 11:23 | CP.PCM.PN ---
Subjective - Date & Time of Evaluation Date of Evaluation: 10/23/18 Time of Evaluation: 11:22 - Subjective Subjective: Patient seen in the room in good spirits I performed a 4 limb EMG/NCS including glossal needle examination Full report to follow Clear neurogenic pattern in most every muscle. Objective - Vital Signs/Intake and Output Vital Signs (last 24 hours): Temp Pulse Resp BP Pulse Ox 97.5 F L 80 21 113/68 97 10/23/18 08:34 10/23/18 08:34 10/23/18 08:34 10/23/18 08:34 10/23/18 08:34 - Medications Medications: Current Medications Acetaminophen (Tylenol 325mg Tab) 650 mg PO Q6 PRN PRN Reason: for pain scale 4-10 Last Admin: 10/21/18 23:05 Dose: 650 mg Cholecalciferol (Vitamin D) 4,000 intlu PO DAILY [facility] Last Admin: 10/23/18 08:36 Dose: 4,000 intlu Clotrimazole (Mycelex Leandro) 10 mg MT 5XD [facility] Last Admin: 10/23/18 08:35 Dose: 10 mg Fluconazole (Diflucan) 100 mg PO DAILY [facility]; Protocol Last Admin: 10/22/18 08:04 Dose: 100 mg Pantoprazole Sodium (Protonix Ec Tab) 40 mg PO DAILY [facility] Last Admin: 10/23/18 08:34 Dose: 40 mg Polyethylene Glycol (Miralax) 17 gm PO DAILY [facility] Last Admin: 10/23/18 08:36 Dose: 17 gm - Labs Labs: 10/18/18 05:27 10/18/18 05:27
[2018-10-24] MEDS: POLYETHYLENE GLYCOL 3350 17 GM/Dose PACKET PO SCH (08:06)
[2018-10-24] MEDS: Cholecalciferol 1,000 INTLU TAB PO SCH (08:07)
[2018-10-24] MEDS: Pantoprazole 40 mg EC Tab PO SCH (08:07)
--- NOTE | 2018-10-24 09:18 | CP.PCM.PN ---
Subjective - Date & Time of Evaluation Date of Evaluation: 10/24/18 Time of Evaluation: 09:16 - Subjective Subjective: Minda Clifford, born 1950, who has been admitted to [facility] for acute inpatient rehabilitation following an admission with progressive weakness and dysphagia/dysarthria. Weakness is more on the left side than the right. Work up to this point has been extensive and did not reveal any other possible abnormality outside of ALS. I performed an EMG/NCS yesterday that revealed extensive electrical instability in essentially every muscle tested. There was only one muscle with fasciculations. Most sensory nerves tested were normal and the CMAPs were mostly significantly reduced. No slowing of the CVs Objective - Vital Signs/Intake and Output Vital Signs (last 24 hours): Temp Pulse Resp BP Pulse Ox 97.2 F L 73 18 136/85 99 10/24/18 07:39 10/24/18 07:39 10/24/18 07:39 10/24/18 07:39 10/24/18 07:39 - Medications Medications: Current Medications Acetaminophen (Tylenol 325mg Tab) 650 mg PO Q6 PRN PRN Reason: for pain scale 4-10 Last Admin: 10/24/18 05:00 Dose: 650 mg Cholecalciferol (Vitamin D) 4,000 intlu PO DAILY [facility] Last Admin: 10/24/18 08:07 Dose: 4,000 intlu Clotrimazole (Mycelex Leandro) 10 mg MT 5XD [facility] Last Admin: 10/24/18 08:07 Dose: 10 mg Fluconazole (Diflucan) 100 mg PO DAILY [facility]; Protocol Last Admin: 10/24/18 08:07 Dose: 100 mg Pantoprazole Sodium (Protonix Ec Tab) 40 mg PO DAILY [facility] Last Admin: 10/24/18 08:07 Dose: 40 mg Polyethylene Glycol (Miralax) 17 gm PO DAILY [facility] Last Admin: 10/24/18 08:06 Dose: 17 gm - Labs Labs: 10/18/18 05:27 10/18/18 05:27 - Constitutional Appears: Non-toxic - Head Exam Head Exam: NORMAL INSPECTION - Eye Exam Eye Exam: EOMI - ENT Exam ENT Exam: Mucous Membranes Moist - Respiratory Exam Respiratory Exam: NORMAL BREATHING PATTERN - Cardiovascular Exam Cardiovascular Exam: REGULAR RHYTHM - GI/Abdominal Exam GI & Abdominal Exam: absent: Guarding - Extremities Exam Extremities Exam: absent: Calf Tenderness - Neurological Exam Neurological Exam: Alert. absent: CN II-XII Intact (poor speech that is no unintelligable) - Psychiatric Exam Psychiatric exam: absent: Agitated - Skin Skin Exam: Warm Assessment and Plan - Assessment and Plan (Free Text) Assessment: PT/OT to continue to help increase functional independence Team conference for d/c planning Pain: controlled Vascular: no evidence of DVT GI: No evidence of constipation or diarrhea We discussed at length the diagnosis and I again stated that I prefer that the neurologist have another detailed discussion with her on the prognosis. I told her that this is not really within my speciality to discuss. Full EMG/NCS report to follow
[2018-10-25] MEDS: Pantoprazole 40 mg EC Tab PO SCH (08:24)
[2018-10-25] MEDS: Cholecalciferol 1,000 INTLU TAB PO SCH (08:24)
[2018-10-25] MEDS: POLYETHYLENE GLYCOL 3350 17 GM/Dose PACKET PO SCH (09:28)
[2018-10-26] MEDS: Pantoprazole 40 mg EC Tab PO SCH (08:29)
[2018-10-26] MEDS: Cholecalciferol 1,000 INTLU TAB PO SCH (08:30)
[2018-10-26] MEDS: POLYETHYLENE GLYCOL 3350 17 GM/Dose PACKET PO SCH (08:31)
[2018-10-27] MEDS: POLYETHYLENE GLYCOL 3350 17 GM/Dose PACKET PO SCH (08:15)
[2018-10-27] MEDS: Cholecalciferol 1,000 INTLU TAB PO SCH (08:16)
[2018-10-27] MEDS: Pantoprazole 40 mg EC Tab PO SCH (08:16)
--- NOTE | 2018-10-27 13:28 | PCM.PSYTMC ---
Acute Rehab Team Conference - - Vital Signs: Vital Signs (Last 8 Hours): Vital Signs 10/27/18 10/27/18 08:10 09:48 Temperature 97.3 F L 97.3 F L Pulse Rate 77 77 Respiratory 20 20 Rate Blood Pressure 125/75 125/75 O2 Sat by Pulse 99 Oximetry Pain: 0 - Precautions: Precautions: Fall Prevention, Aspiration - Medications/Other Issues: Comment: Awaiting result for Lyme Igg 18 result collected 10/21/18 - Consults: Comment: Nataly Magana - Skin: Incision Site: N/A - Toileting: Toileting: Minimal Assistance - Bladder Management: Bladder Pattern: Normal Voiding Method: Toilet Bladder Management: Minimal Assistance - Transfers: Transfers: Minimal Assistance - ADL's: ADL's: Minimal Assistance - Pain Management: Other Intervention:: Tylenol 650 mg.p.o every 6 hrs for pain level 4-10 - Patient/Family Teaching: Other Intervention:: Safety, Fall Prevention, Safe transfer from bed to chair/ wheelchair. Aspiration Precaution. Effective way of communication - Goals/Time Frame: Comment: Next Team Conference - Provider: Registered Nurse:: Jasmin Elena Physical Therapy - Bed Mobility Bed Mobility: Verbal Cues, Minimal Assistance, Moderate Assistance Comment: assistance for rolling - Transfers Wheelchair to Mat: Verbal Cues, Minimal Assistance, Moderate Assistance Sit to Stand: Verbal Cues, Minimal Assistance Comment: RW - Ambulation Level of Assistance: Verbal Cues, Minimal Assistance Distance (ft.): 125 Orthoses: intermittent use of B MAFOs as needed for support Comment: 125 feet with RW without MAFOs donned today. -x 1 trial with min/mod A at times. -B knee flexion through all phases of gait with more impairments noted on L compared to R. -impaired L heel to toe pattern with inversion and mid-foot initial contact noted. -continued difficulty with gripping of walker on L side with impaired use of thumb to wrap around handle as well increased flexion of the wrist noted on the walker - Stair Negotiation Stairs: Level of Assistance: Moderate Assistance, Maximum Assistance Comment: recommend medical carry-up - Standing Balance Static Stand: Minimal Assistance - Pain Pain (assessed during therapy session): 0 Comment: denies pain at rest. -5/10 discomfort with passive motion of the L arm - Insight/Carryover Insight/Carryover: Fair - Patient/Family Education Comment: safety, therapy schedule, therapy goals, mobility, use of call mcdonough, energy conservation techniques, plan of care, postural control, use of DME - Assessment/Plan Assessment: Ms. Clifford continues to require fluctuating assistance during therapy. Patient has increased fatigue noted at end of day and requires slightly increased assistance today for mobility. PT observes patient to have reduced spontaneous use of BUEs during functional tasks. Patient continues to present with weakness and impaired tolerance to activities. PT continues to recommend supportive therapy with emphasis on maintaining range of motion, reducing burden of care, functional mobility, education and pain reduction. PT recommends home discharge with 24 hour skilled care. PT recommends RW for transfers, WC, hospital bed and LE bracing as needed. PT recommends home therapy. - Goals Timeframe: 7 days Goals: -rolling with supervision. -supine to/from sit with supervision. -sit to/from stand with RW with CGA. -stand pivot transfer with RW with CGA. - ambulate 150 feet with RW with CS. -family will attend family training session and begin hands on training for safety with discharge - Provider Physical Therapist:: Ailyn Livingston License Number:: [id number] Occupational Therapy - Arousal/Attention/Orientation Level of Consciousness: Awake, Alert Patient Orientation: Person, Place, Time - ADL/IADL Self Feeding: Set-up Help Grooming: Set-up Help Bathing-Upper Ext: Minimal Assistance Bathing-Lower Ext: Moderate Assistance Dressing-Upper Ext: Minimal Assistance Dressing-Lower Ext: Minimal Assistance - Sitting Balance Static Sitting: Independent without upper extremity support Dynamic Sitting: Reaches across midline, Reaches out of base of support, Requires supervision - Transfers Wheelchair to Bed Transfers: Minimal Assistance Toilet Transfers: Minimal Assistance Tub Transfers: Minimal Assistance, Moderate Assistance - Wheelchair Management Level of Assistance: Minimal Assistance Distance (ft.): 150 - Upper Extremity Status Right Upper Extremity Comment: R shoulder , elbow, forearm, wrist 3/5, R fingers 3-/5 Left Upper Extremity Comment: L shoulder 3-/5, elbow, forearm wrist 3/5, fingers 3-/5 - Pain Pain (assessed during therapy session): 5 Alleviating Techniques: Medication, Position Change Comment: intermittent L shoulder pain during shldr flexion - Insight/Carryover Insight/Carryover: Fair - Patient/Family Education Comment: DME/AE recovery , compensatory techniques for bathing/dressing , role of OT , goals of therapy, d/c planning , plan of care - Assessment/Plan Assessment: Pt is a 68 year old female with dx: ALS. Pt limited by impaired BUE strength/hand and digits, impaired AROM/PROM in L shoulder, L wrist and B/L digits, impaired sitting/standing balance/tolerance, impaired safety a wareness/insight/judgement,impaired overall endurance, impaired knowledge of adaptive/compensatory strategies. At current time patient completes ub adls with overall min A, lb adls with overall min-mod A, toileting with min A and transfers with min A. recommend 24/ assistance at home. recommended dme: tub transfer bench, 3 in 1 commode, rw, and w/c 2' progressive nature of disease - Goals Timeframe: 1 week - Provider Occupational Therapist:: Britt Castillo License Number: [id number] Speech Therapy - Consult Information Patient on Program: Yes Medical Diagnosis: ALS Treatment Diagnosis: -severe dysarthria/dysphonia. -moderate dysphagia - Assessment Speech/Articulation Impairment: Severe Dysphagia/Swallowing Impairment: Moderate - Plan Assessment: Minda Clifford presents with severe dysarthria and dysphonia characterized by impaired oral motor strength/ROM/coordination, impaired respiration for phonation with significantly reduced vocal loudness and hypernasal voice quality negatively impacting articulatory precision and speech intelligibility at the word/phrase level with her speech being intelligible 25- 50% AGUSTIN with max cues and confirmation for listener comprehension; the pt is utilizing writing to effectively communicate her wants/needs/ideas. A repre sentative from [employer] will be seeing pt this week to assess her use of high-tech AAC devices. Pt also presents with moderate oropharyngeal dysphagia characterized by impaired oral containment, moderately impaired bolus formation and control with suspected posterior spillage, impaired mastication, prolonged A-P transit time with all consistencies, delayed swallow initiation with impaired laryngeal elevation; no overt s/s aspiration on PO trials tested, though pt at risk for aspiration secondary to impaired lingual strength negatively impacting bolus control and propulsion. Recommend maintenance of finely chopped, moist solids and nectar thick liquids; maintain strict aspiration precautions. Pt is highly motivated with good participation in tx tasks, though physical deficits are a barrier to learning. She would benefit from continued speech and dysphagia tx for compensatory strategy education, training on use of AAC devices to effectively communicate in functional living environment, diet tolerance, and compensatory strategy training for safe swallowing of PO diet. Plan: Continue Dysphagia Therapy, Continue Speech/Language Therapy Frequency: 3-5 times per week Duration: 1 week Goals/Timeframe: Please refer to progress note completed 10/26/18 for updated goals/POC Recommendations: -Continue speech and dysphagia tx 3-5x/week. -Maintain MOIST finely chopped diet/nectar thick liquids - Provider Therapist: Inge Dukes License Number: [id number] Recreational Therapy - Participation Participation: Participates in Individual and/or Group Sessions - Attendance Attendance: 3-5 times per week - Activities Leisure Activities: Television - Socialization Level of Socialization: Initiates/interacts freely with care givers and peer - Diversional Time Diversional Time: bedside visits - Assessment Assessment/Plan: Pt receives daily room visits at bedside following therapy sessions. Pt presents with fatigue; however, is arousable and communicates mostly with white board or gestures. Pt agreeable to have nails painted and requiring CGA to keep fingers straight. Pt continues to present stable-positive mood state although at times questioning her diagnosis. Pt's barriers to participation include fatigue, decrease activity tolerance level, and weakness in which all are related to diagnosis. Will encourage throughout stay on unit. Problems Currently Limiting Participation: impaired speech intelligibility, progressive weakness, limited insight of diagnosis, decrease activity tolerance level related to diagnosis Goals and Time Frame: Pt will participate in 30 minute recreation therapy session requiring 50% of verbal cues to improve leisure awareness level and activty tolerance level by date of discharge. - Provider Therapist: Heike Casiano Nutrition - Current Diet Current Diet/Supplement/Feedings: 1) Mech altered(finely chopped), nectar thick liquids, gluten free, sugar free. 2) Prostat Sugar free BID (200 kcal, 30g pro) - Appetite Percent Meal Consumed: 50-74% - Comments Comments: No GI upset noted, - Assessment/Goals/Time Frame Assessments/Goals/Time Frame: 1) Pt to continue to consume 75-100% of meals (not met,continue). 2) Maintain current weight while hospitalized (Maintaining weight from prior follow up). For follow up 11/01 - Provider Provider: Oliver Stewart Case Management - Psychosocial Assessment Support Systems: Tacho Clifford ([facility]) - [phone] Psychological Interventions/Needs: Patient is AAO. Patient communicates with a white board. Discharge Concerns: Patient is requiring extensive assist and 24r assist and supervision. Patient/Family Meeting: CM met with patient and rehab team. Intervention/Goal/Outcome: 1. Goal: 24hr care/supervision 2. Plan: home with VNS, private pay [employer], and 24hr supervision 2. f/u appts 3. caregiver training with son 4. order appropriate DME 5. continued emotional support - Discharge Plan Discharge Plan: Home with significant other/family Home Services: [facility] - Provider Provider: Tessa Dunn License Number: [id number] Rehabilitation Plan - Treatment Plan Treatment Plan: Physical Therapy, Occupational Therapy, Speech, Dietary, Patient/Family Education - Discharge Plan Estimated Date of Discharge: 10/29/18 Discharge to: Home
[2018-10-28] MEDS: Pantoprazole 40 mg EC Tab PO SCH (08:41)
[2018-10-28] MEDS: Cholecalciferol 1,000 INTLU TAB PO SCH (08:41)
[2018-10-28] MEDS: POLYETHYLENE GLYCOL 3350 17 GM/Dose PACKET PO SCH (08:41)
--- NOTE | 2018-10-28 08:50 | CP.PCM.PN ---
Subjective - Date & Time of Evaluation Date of Evaluation: 10/27/18 Time of Evaluation: 13:35 - Subjective Subjective: Patient was seen in the room discussed discharge plans. she had no specific questions she has plateaued at this point and stairs fatigue her Will have a specialist come in 10/28/18 to go over communication device options continue current care. Objective - Vital Signs/Intake and Output Vital Signs (last 24 hours): Temp Pulse Resp BP Pulse Ox 97.9 F 73 19 126/65 98 10/28/18 07:55 10/28/18 07:55 10/28/18 07:55 10/28/18 07:55 10/28/18 07:55 - Medications Medications: Current Medications Acetaminophen (Tylenol 325mg Tab) 650 mg PO Q6 PRN PRN Reason: for pain scale 4-10 Last Admin: 10/28/18 05:37 Dose: 650 mg Cholecalciferol (Vitamin D) 4,000 intlu PO DAILY [facility] Last Admin: 10/28/18 08:41 Dose: 4,000 intlu Clotrimazole (Mycelex Leandro) 10 mg MT 5XD [facility] Last Admin: 10/28/18 08:41 Dose: 10 mg Pantoprazole Sodium (Protonix Ec Tab) 40 mg PO DAILY [facility] Last Admin: 10/28/18 08:41 Dose: 40 mg Polyethylene Glycol (Miralax) 17 gm PO DAILY [facility] Last Admin: 10/28/18 08:41 Dose: 17 gm - Labs Labs: 10/18/18 05:27 10/18/18 05:27
--- NOTE | 2018-10-28 12:19 | CP.PCM.PN ---
Subjective - Date & Time of Evaluation Date of Evaluation: 10/28/18 Time of Evaluation: 12:18 - Subjective Subjective: Patient seen in the room denies sob/cp doing ok I gave her the report of the EMG/NCS so she has it for her records continue current care d/c is planned for tomorrow Objective - Vital Signs/Intake and Output Vital Signs (last 24 hours): Temp Pulse Resp BP Pulse Ox 98.8 F 73 19 126/65 98 10/28/18 12:05 10/28/18 07:55 10/28/18 07:55 10/28/18 07:55 10/28/18 07:55 - Medications Medications: Current Medications Acetaminophen (Tylenol 325mg Tab) 650 mg PO Q6 PRN PRN Reason: for pain scale 4-10 Last Admin: 10/28/18 12:05 Dose: 650 mg Cholecalciferol (Vitamin D) 4,000 intlu PO DAILY [facility] Last Admin: 10/28/18 08:41 Dose: 4,000 intlu Clotrimazole (Mycelex Leandro) 10 mg MT 5XD [facility] Last Admin: 10/28/18 12:06 Dose: 10 mg Pantoprazole Sodium (Protonix Ec Tab) 40 mg PO DAILY [facility] Last Admin: 10/28/18 08:41 Dose: 40 mg Polyethylene Glycol (Miralax) 17 gm PO DAILY [facility] Last Admin: 10/28/18 08:41 Dose: 17 gm - Labs Labs: 10/18/18 05:27 10/18/18 05:27
[2018-10-29] MEDS: POLYETHYLENE GLYCOL 3350 17 GM/Dose PACKET PO SCH (09:04)
[2018-10-29] MEDS: Pantoprazole 40 mg EC Tab PO SCH (09:05)
[2018-10-29] MEDS: Cholecalciferol 1,000 INTLU TAB PO SCH (09:05)
[2018-10-30] MEDS: Pantoprazole 40 mg EC Tab PO SCH (08:36)
[2018-10-30] MEDS: Cholecalciferol 1,000 INTLU TAB PO SCH (08:36)
[2018-10-30] MEDS: POLYETHYLENE GLYCOL 3350 17 GM/Dose PACKET PO SCH (08:36)
--- NOTE | 2018-10-30 15:09 | CP.PCM.CON ---
History of Present Illness - History of Present Illness History of Present Illness: Neurology Consultation Note: Consult requested by Dr. Slaughter MRs. Clifford is a 68-year-old woman who was recently diagnosed with ALS after clinical and EMG/NCS confirmation, who is in acute rehab to improve her function. I was consulted as a second opinion and to assist with the management and care. Review of Systems - Constitutional Constitutional: As Per HPI - EENT Eyes: absent: As Per HPI, Blind Spots, Blurred Vision, Change in Vision, Decreased Night Vision, Diplopia, Discharge, Dry Eye, Exophthalmos, Floaters, Irritation, Itchy Eyes, Loss of Peripheral Vision, Pain, Photophobia, Requires Corrective Lenses, Sees Flashes, Spots in Vision, Tunnel Vision, Other Visual Disturbances, Loss of Vision, Other Ears: absent: As Per HPI, Decreased Hearing, Ear Discharge, Ear Pain, Tinnitus, Abnormal Hearing, Disequilibrium, Dizziness, Other Nose/Mouth/Throat: absent: As Per HPI, Epistaxis, Nasal Congestion, Nasal Discharge, Nasal Obstruction, Nasal Trauma, Nose Pain, Post Nasal Drip, Sinus Pain, Sinus Pressure, Bleeding Gums, Change in Voice, Dental Pain, Dry Mouth, Dysphagia, Halitosis, Hoarsness, Lip Swelling, Mouth Lesions, Mouth Pain, Odynophagia, Sore Throat, Throat Swelling, Tongue Swelling, Facial Pain, Neck Pain, Neck Mass, Other - Cardiovascular Cardiovascular: absent: As Per HPI, Acrocyanosis, Chest Pain, Chest Pain at Rest, Chest Pain with Activity, Claudication, Diaphoresis, Dyspnea, Dyspnea on Exertion, Edema, Irregular Heart Rhythm, Pain Radiating to Arm/Neck/Jaw, Leg Edema, Leg Ulcers, Lightheadedness, Orthopnea, Palpitations, Paroxysmal Nocturnal Dyspnea, Pedal Edema, Radiating Pain, Rapid Heart Rate, Slow Heart Rate, Syncope, Other - Respiratory Respiratory: absent: As Per HPI, Cough, Dyspnea, Hemoptysis, Dyspnea on Exertion, Wheezing, Snoring, Stridor, Pain on Inspiration, Chest Congestion, Excessive Mucous Production, Change in Mucous Color, Pain with Coughing, Other - Gastrointestinal Gastrointestinal: absent: As Per HPI, Abdominal Pain, Belching, Bloating, Change in Bowel Habits, Change in Stool Character, Coffee Ground Emesis, Constipation, Cramping, Diarrhea, Dyspepsia, Dysphagia, Early Satiety, Excessive Flatus, Fecal Incontinence, Heartburn, Hematemesis, Hematochezia, Loose Stools, Melena, Nausea, Odynophagia, Temesmus, Vomiting, Other - Musculoskeletal Musculoskeletal: Limited Range of Motion, Muscle Weakness - Neurological Neurological: Abnormal Gait, Abnormal Movements, Weakness Past Patient History - Infectious Disease Hx of Infectious Diseases: None - Tetanus Immunizations Tetanus Immunization: Unknown - Past Medical History & Family History Past Medical History?: Yes - Past Social History Smoking Status: Never Smoked Alcohol: Occasional - CARDIAC Hx Cardiac Disorders: No - PULMONARY Hx Respiratory Disorders: No - NEUROLOGICAL Hx Neurological Disorder: Yes (frequent falls recent) Hx Dizziness: Yes Other/Comment: 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 speech very slow and has problem enunciating words, pt thinks her voice sounds different since june 2018. ALS - HEENT Hx HEENT Problems: Yes - RENAL Hx Chronic Kidney Disease: No - ENDOCRINE/METABOLIC Hx Endocrine Disorders: No - HEMATOLOGICAL/ONCOLOGICAL Hx Blood Disorders: Yes Hx AIDS: No Hx Human Immunodeficiency Virus (HIV): No Other/Comment: BENY CAIN - INTEGUMENTARY Hx Dermatological Problems: No - MUSCULOSKELETAL/RHEUMATOLOGICAL Hx Musculoskeletal Disorders: Yes Hx Arthritis: Yes Hx Falls: Yes (Couple of weeks ago, multiple hx of falls) - GASTROINTESTINAL Hx Gastrointestinal Disorders: Yes Hx Gastritis: Yes Hx Ulcer: Yes (PUD) Other/Comment: weight loss, poor appetite. Hiatal Hernia - GENITOURINARY/GYNECOLOGICAL Hx Genitourinary Disorders: No - PSYCHIATRIC Hx Psychophysiologic Disorder: No Hx Substance Use: No - SURGICAL HISTORY Hx Surgeries: Yes Other/Comment: R hip surgery fx from fall. R elbow surgery. R shoulder surgery rotator cuff. Bilateral breast implant - ANESTHESIA Hx Anesthesia: Yes Hx Anesthesia Reactions: No Hx Malignant Hyperthermia: No Meds Allergies/Adverse Reactions: Allergies Allergy/AdvReac Type Severity Reaction Status Date / Time ammonia Allergy Intermediate HEADACHE Verified 10/15/18 16:56 windex Allergy Intermediate HEADACHE Uncoded 10/15/18 16:57 - Medications Medications: Current Medications Acetaminophen (Tylenol 325mg Tab) 650 mg PO Q6 PRN PRN Reason: for pain scale 4-10 Last Admin: 10/30/18 06:21 Dose: 650 mg Cholecalciferol (Vitamin D) 4,000 intlu PO DAILY [facility] Last Admin: 10/30/18 08:36 Dose: 4,000 intlu Clotrimazole (Mycelex Leandro) 10 mg MT 5XD [facility] Last Admin: 10/30/18 14:15 Dose: 10 mg Pantoprazole Sodium (Protonix Ec Tab) 40 mg PO DAILY [facility] Last Admin: 10/30/18 08:36 Dose: 40 mg Polyethylene Glycol (Miralax) 17 gm PO DAILY [facility] Last Admin: 10/30/18 08:36 Dose: 17 gm Physical Exam - Constitutional Appears: Cachectic - Head Exam Head Exam: ATRAUMATIC, NORMAL INSPECTION, NORMOCEPHALIC - Eye Exam Eye Exam: EOMI, Normal appearance, PERRL Pupil Exam: NORMAL ACCOMODATION, PERRL - ENT Exam ENT Exam: Mucous Membranes Moist, Normal Exam - Neck Exam Neck exam: Positive for: Normal Inspection - Respiratory Exam Respiratory Exam: Clear to Auscultation Bilateral, NORMAL BREATHING PATTERN - Cardiovascular Exam Cardiovascular Exam: REGULAR RHYTHM, +S1, +S2 - GI/Abdominal Exam GI & Abdominal Exam: Normal Bowel Sounds, Soft. absent: Tenderness - Extremities Exam Extremities exam: Positive for: normal inspection - Back Exam Back exam: NORMAL INSPECTION - Neurological Exam Neurological exam: Abnormal Gait, CN II-XII Intact, Oriented x3 Additional comments: Difficulty with phonation due to oropharyngeal weakness, generalized weakness, tongue fasciculations noted, wasting of distal muscles, reflexes are brisk, Babinski is positive. - Psychiatric Exam Psychiatric exam: Normal Affect, Normal Mood - Skin Skin Exam: Dry, Intact, Normal Color, Warm Results - Vital Signs Recent Vital Signs: Last Vital Signs Temp 98.6 F 10/30/18 10:00 Pulse 86 10/29/18 19:50 Resp 17 10/30/18 10:00 BP 123/69 10/30/18 10:00 Pulse Ox 98 10/30/18 10:00 - Labs Result Diagrams: 10/18/18 05:27 10/18/18 05:27 Assessment & Plan (1) ALS (amyotrophic lateral sclerosis) Assessment and Plan: The diagnosis appears to be accurate considering the clinical course and diagnostic findings. Unfortunately, there are not many options for the patient aside from Riluzole or Edaravone, or both. Clinical trials for stem cells are unlikely to accept her due to her age. Options outside the [place] may not be legitimate. Thank you for this consultation. Status: Acute
[2018-10-31] MEDS: Pantoprazole 40 mg EC Tab PO SCH (08:42)
[2018-10-31] MEDS: POLYETHYLENE GLYCOL 3350 17 GM/Dose PACKET PO SCH (08:42)
[2018-10-31] MEDS: Cholecalciferol 1,000 INTLU TAB PO SCH (08:59)
[2018-11-01] MEDS: Cholecalciferol 1,000 INTLU TAB PO SCH (08:49)
[2018-11-01] MEDS: Pantoprazole 40 mg EC Tab PO SCH (08:49)
[2018-11-01] MEDS: POLYETHYLENE GLYCOL 3350 17 GM/Dose PACKET PO SCH (08:49)
[2018-11-02 08:33] VITALS: BP 139/82; PULSE 96; RESP 18; TEMP 98.1; O2SAT 96
[2018-11-02] MEDS: Pantoprazole 40 mg EC Tab PO SCH (08:53)
[2018-11-02] MEDS: Cholecalciferol 1,000 INTLU TAB PO SCH (08:53)
[2018-11-02] MEDS: POLYETHYLENE GLYCOL 3350 17 GM/Dose PACKET PO SCH (09:06)
--- NOTE | 2018-11-03 21:17 | CP.PCM.PN ---
Subjective - Date & Time of Evaluation Date of Evaluation: 10/31/18 Time of Evaluation: 09:20 - Subjective Subjective: no acute complaints at present Objective - Vital Signs/Intake and Output Vital Signs (last 24 hours): Temp Pulse Resp BP Pulse Ox 98.1 F 96 H 18 139/82 96 11/02/18 08:32 11/02/18 08:32 11/02/18 08:32 11/02/18 08:32 11/02/18 08:32 - Labs Labs: 10/18/18 05:27 10/18/18 05:27 - Constitutional Appears: Well - Head Exam Head Exam: ATRAUMATIC, NORMAL INSPECTION, NORMOCEPHALIC - Eye Exam Eye Exam: EOMI, Normal appearance Pupil Exam: NORMAL ACCOMODATION - ENT Exam ENT Exam: Mucous Membranes Moist, Normal Exam - Neck Exam Neck Exam: Full ROM, Normal Inspection - Respiratory Exam Respiratory Exam: Clear to Ausculation Bilateral, NORMAL BREATHING PATTERN - Cardiovascular Exam Cardiovascular Exam: REGULAR RHYTHM - GI/Abdominal Exam GI & Abdominal Exam: Soft, Normal Bowel Sounds - Rectal Exam Rectal Exam: NORMAL INSPECTION - Exam External exam: NORMAL EXTERNAL EXAM - Extremities Exam Extremities Exam: Full ROM, Normal Capillary Refill - Back Exam Back Exam: NORMAL INSPECTION - Neurological Exam Neurological Exam: Alert - Psychiatric Exam Psychiatric exam: Normal Affect - Skin Skin Exam: Normal Color Assessment and Plan (1) Chronic inflammatory demyelinating polyneuropathy Assessment & Plan: covering for Dr Campos, continue with physical, occupational, rec therapy , follow up with PMD Status: Acute (2) Dysarthria Status: Acute (3) Multiple falls Status: Acute
== END 2018-11-02 17:00 | disposition home health service (06) | DRG 57 ==
PROVIDERS: ADMIT Internal Medicine; ATTEND Internal Medicine
PROC: F07Z9FZ Gait Training/Functional Ambulation Treatment using Assistive, Adaptive, Supportive or Protective Equipment (ICD-10-PCS; principal; 2018-10-15)
PROC: F08Z4FZ Home Management Treatment using Assistive, Adaptive, Supportive or Protective Equipment (ICD-10-PCS; 2018-10-15)
PROC: F07M6FZ Therapeutic Exercise Treatment of Musculoskeletal System - Whole Body using Assistive, Adaptive, Supportive or Protective Equipment (ICD-10-PCS; 2018-10-15)
DX: G12.21 Amyotrophic lateral sclerosis (principal); G61.81 Chronic inflammatory demyelinating polyneuritis; R29.6 Repeated falls; F32.9 Major depressive disorder, single episode, unspecified; R47.1 Dysarthria and anarthria; Z91.81 History of falling; Z98.82 Breast implant status; Z87.81 Personal history of (healed) traumatic fracture; Z87.11 Personal history of peptic ulcer disease